=== PATIENT | male | born 2005 | race Caucasian/White ===

== ENCOUNTER 2024-08-30 23:05 | Emergency (ER) | payer BC, SELFPAY ==
[2024-08-30 23:23] VITALS: BP 141/76
[2024-08-31 00:44] LABS: % Basophils 0.4 % (0-2); % Immature Granulocytes 0.4 % (0-0.5); % Lymphocytes 10.3 % (20.5-51.1); % Monocytes 7.4 % (1.7-9.3); % Neutrophils 81.5 % (42.2-75.2); Absolute Basophils 0.1 10^3/uL (0-0.2); Absolute Immature Granulocytes 0.1 10^3/uL (0-0.05); Absolute Lymphocytes 1.4 10^3/uL (1.2-3.4); Absolute Neutrophils 11.1 10^3/uL (1.4-6.5); Hematocrit 44.6 % (39.0-52.0); Hemoglobin 15.8 g/dL (13.0-18.0); Mean Corp Hgb Conc. 35.4 g/dL (33.0-37.0); Mean Corpuscular Hgb 30.2 pg (27.0-31.0); Mean Corpuscular Volume 85.1 fL (80.0-94.0); Mean Platelet Volume 9.2 fL (7.4-10.4); Nucleated Red Blood Cells % 0 % (-); Platelet Count 325 10^3/uL (130-400); Red Blood Cell Count 5.24 10^6/uL (4.70-6.10); Red Cell Dist. Width 11.9 % (11.5-14.5); White Blood Cell Count 13.7 10^3/uL (4.8-10.8)
[2024-08-31 00:59] LABS: AST (SGOT) 46 U/L (17-59); Alkaline Phosphatase 67 U/L (38-126); Calcium 10.9 mg/dl (8.4-10.2); Carbon Dioxide 22 mmol/L (22-30); Chloride 102 mmol/L (98-107); Glucose 133 mg/dl (70-99); Lipase 274 U/L (23-300); Potassium 4.3 mmol/L (3.5-5.1); Sodium 144 mmol/L (135-145); Total Bilirubin 1.2 mg/dl (0.2-1.3); Total Protein 9.7 g/dl (6.3-8.2); eGFR > 60.00
[2024-08-31 01:24] LABS: ALT (SGPT) 46 U/L (0-50); Blood Urea Nitrogen 16 mg/dl (9-20)
[2024-08-31 02:20] VITALS: BP 112/78
[2024-08-31] MEDS: NSS 1000 IV (03:58)
[2024-08-31] MEDS: ZOFRAN 4 MG IV (04:03)
[2024-08-31 04:05] VITALS: BP 132/77
[2024-08-31] MEDS: ATIVAN 0.5 MG IV (04:51)
--- NOTE | 2024-08-31 06:42 | ED.GENMED ---
History of Present Illness
General
Chief Complaint: Abdominal Symptoms
Source: patient and family (Mother and father at bedside)
Exam Limitations: none
Time Seen by Provider: 08/31/24 03:46
Nursing documentation reviewed up to this point in time: agreed with
History of Present Illness
History of Present Illness:
This is a 19-year-old male who has history of anxiety, maintained on medical marijuana as well as SSRI. He is also prescribed as needed low-dose Xanax.
He complains of persistent nausea and vomiting that began over 24 hours ago after drinking alcohol. He states he drank approximately 4-5 vodka seltzers and admits to feeling significantly nauseated early in the morning after night of drinking and
nausea has persisted throughout the day accompanied with moderate anxiety.
He admits to 1 similar episode as this, similarly initiated after consuming some alcohol. Also similarly noted with moderate anxiety.
He denies abdominal pain. He denies diarrhea or constipation. No fever nor chills. No chest pain or coughing or shortness of breath.
No close contacts with similar symptoms.
Past History
Past History
ED Past Medical History: Psychiatric (Anxiety)
ED Past Surgical History: None
Social History
Tobacco: Non-smoker
Alcohol: Occasional
Drug: Marijuana
Personal: Single
Living: with family
Employment: Student
Family History
Family History: Other (Noncontributory)
Phy Exam
Physical Exam
Physical Exam:
GENERAL: 19-year-old male appears his stated age, awake and alert, appears mildly anxious. Noted to have intermittent, quite loud retching with minimal vomitus. Both parents are accompanying.
EYE: pupils equal and reactive. anicteric
NECK: Supple, nontender, no meningismus, no significant adenopathy.
ENT: oral mucosa is moist. No rhinorrhea.
CARDIAC: Regular rate and rhythm. no murmur.
LUNGS: Clear breath sounds bilaterally, no acute respiratory distress, no wheezes/rales/rhonchi
ABDOMEN: Soft, nondistended, without focal tenderness, no r/g, no cvat. normoactive BS.
NEUROLOGICAL: Alert and oriented x3, no focal neuro deficits. Gait is steady.
SKIN: Warm and dry, normal color, skin intact. No rash.
MUSCULOSKELETAL: No C/C/E. peripheral pulses are full and equal b/l. No palpable tenderness.
PSYCH: Mildly anxious.
Course
Orders/Labs/Results
Orders:
Orders
08/30/24 23:25
Complete Blood Count/With Diff Urgent
Comprehensive Metabolic Panel Urgent
Lipase Urgent
08/31/24 03:55
0.9% Sodium Chloride 1000 ml [Nss] 1,000 ml IV BOLUS
Ondansetron Injectable [Zofran] 4 mg IV NOW STA
08/31/24 03:56
Ondansetron Injectable [Zofran] 4 mg .ROUTE .STK-MED ONE
08/31/24 04:47
Lorazepam [Ativan] 2 mg .ROUTE .STK-MED ONE
08/31/24 04:49
Lorazepam [Ativan] 0.5 mg IV NOW STA
Abnormal Lab Results
08/31/24
00:33
WBC 13.7 H 10^3/uL
(4.8-10.8)
Abs Immat Gran (auto) 0.1 H 10^3/uL
(0-0.05)
Absolute Neuts (auto) 11.1 H 10^3/uL
(1.4-6.5)
Absolute Monos (auto) 1.0 H 10^3/uL
(0.1-0.6)
Neutrophils % 81.5 H %
(42.2-75.2)
Lymphocytes % 10.3 L %
(20.5-51.1)
Glucose 133 H mg/dl
(70-99)
Calcium 10.9 H mg/dl
(8.4-10.2)
Total Protein 9.7 H g/dl
(6.3-8.2)
Albumin 6.0 H g/dl
(3.5-5.0)
08/31/24 00:33
08/31/24 00:33
Vital Signs
Initial and Last Documented VS:
Initial Vital Signs
Temp Pulse Resp BP Pulse Ox
98.0 F 114 24 141/76 99
08/30/24 23:23 08/30/24 23:23 08/30/24 23:23 08/30/24 23:23 08/30/24 23:23
Last Documented Vital Signs
Temp Pulse Resp BP Pulse Ox
98.0 F 97 16 132/77 100
08/30/24 23:23 08/31/24 04:05 08/31/24 04:05 08/31/24 04:05 08/31/24 04:05
MDM/Problems Addressed
Differential Diagnosis Includes:
Concern for acute viral gastroenteritis, acute alcoholic gastritis, alcohol related nausea and vomiting, other consideration is cannabis hyperemesis syndrome.
Clinically appears euvolemic. Hemodynamically stable.
Abdominal exam is soft, benign without tenderness.
Will initiate IV fluids and given IV dose of Zofran.
Labs are overall reassuring. Mildly elevated white blood cell count. Unremarkable chemistries.
At this point no indication for imaging.
Chronic conditions affecting care: Psychiatric illness
*Pulse Oximetry
Patient hypoxic: no
*Critical Care Note
Total Time (30-74mins, 75-104mins- exclusive of procedures): Not Applicable
Update Note
Update Note:
04:45
Nausea has moderately improved and patient has had no further retching but he complains of significant anxiety and is requesting a dose of his Xanax.
Will give an IV dose of lorazepam. IV fluids are continuing.
Will continue to observe.
06:40
After IV fluids, IV Zofran and a small IV dose of Ativan patient feeling markedly improved. No further nausea and vomiting.
Tolerating oral fluids.
Eager to be discharged to home.
Recommend limiting diet to clear liquids at least for this morning and this afternoon, then slowly advance to soft bland foods as tolerated.
A prescription for Zofran has been provided for as needed nausea or vomiting.
Encouraged to avoid alcoholic beverages.
Prompt follow-up with PCP for recheck.
ED Attending Note
-
Portions of this chart may have been created with voice recognition software.� Occasional wrong word or��sound alike� substitutions may have occurred due to the inherent limitations of voice recognition software.
Discharge Plan
Departure
Patient Disposition: Home (Routine Discharge)
Date of Disposition: 08/31/24
Time of Disposition: 06:42
Patient with high blood pressure during this ER visit?: No
Condition: Good
Discharge Problem:
Acute nausea with nonbilious vomiting, Anxiety, generalized
Instructions: Clear Liquid Diet, Nausea and Vomiting, Adult (DC), Anxiety in adults - ED discharge instructions
Prescriptions:
New
ondansetron 4 mg tablet,disintegrating
4 mg PO QID PRN (Reason: nausea and vomiting) Qty: 20 0RF
Referrals:
Gaston Garber DO [Family Provider] - Call in 1-3 days for appt
Interventions
Interventions:
*Risk Screen - Suicide Last Done: 08/30/24 23:23
*General Assessment Last Done: 08/30/24 23:23
*Neglect/Abuse Screening Last Done: 08/30/24 23:23
ED- Fall Risk Assessment Last Done: 08/31/24 04:10
DQ-Skhcxo-Vnaoslayhd Assessment Last Done: 08/31/24 04:10
Discharge Date and Time
Print Language: GERMAN
== END 2024-08-31 07:01 | disposition home or self-care (01) ==
LOC: EMR 23:05
PROVIDERS: EMERGENCY PHYSICIAN Emergency Medicine; FAMILY PHYSICIAN Internal Medicine
DX: R11.2 Nausea with vomiting, unspecified (principal); F41.1 Generalized anxiety disorder
CPT/HCPCS: 99283; 96374; 96375; 96361; 80053; 83690; 85025